=== PATIENT | male | born 2000 | race Hispanic/Latino ===

== ENCOUNTER 2019-07-20 19:26 | Emergency (ER) | payer OTHER, SELFPAY ==
--- NOTE | 2019-07-20 20:33 | RAD REPORT ---
EXAM DESCRIPTION: Erin Borrego (2 Views)07/20/2019 8:08 pm CLINICAL HISTORY: Cough COMPARISON: None FINDINGS: The lungs appear clear of acute infiltrate. The heart is normal size On the lateral view and upper thoracic vertebral body appears sclerotic IMPRESSION: On the lateral view an upper thoracic vertebral body appears sclerotic. This could be se condary to overlapping of normal structures giving the appearance of a sclerotic vertebra or be patho logic. It is recommended that the patient have lateral x-ray of the upper thoracic spine for further evaluation
--- NOTE | 2019-07-20 21:51 | ER ---
Nurse's Notes [facility] Name: King Pierce Age: 18 yrs Sex: Male : 2000 Arrival Date: 07/20/2019 Time: 19:27 Bed 28 Private MD: Chase Whitney W Diagnosis: Gas pain;Constipation;Essential (primary) hypertension Presentation: 07/20 19:51 Presenting complaint: Patient states: "i am having difficulty breathing, especially tr5 when i lay down i feel my heart beating fast and i feel dizzy.". Transition of care: patient was not received from another setting of care. Risk Assessment: Do you want to hurt yourself or someone else? Patient reports no desire to harm self or others. Initial Sepsis Screen: Does the patient meet any 2 criteria? No. Patient's initial sepsis screen is negative. Does the patient have a suspected source of infection? No. Patient's initial sepsis screen is negative. Care prior to arrival: None. 19:51 Method Of Arrival: Ambulatory tr5 19:51 Acuity: JANNY 4 tr5 Triage Assessment: 22:27 Respiratory: Onset: The symptoms/episode began/occurred. tr5 Historical: - Allergies: 19:54 No Known Allergies; tr5 - Home Meds: 19:54 None [Active]; tr5 - PMHx: 19:54 Asthma; tr5 - PSHx: 19:54 None; tr5 - Immunization history:: Adult Immunizations up to date. - Social history:: Smoking status: Patient uses tobacco products, denies chronic smoking, but will smoke occasionally. - Ebola Screening: : No symptoms or risks identified at this time. Screenin:54 Abuse screen: Denies threats or abuse. Nutritional screening: No deficits noted. tr5 Tuberculosis screening: No symptoms or risk factors identified. Fall Risk None identified. Assessment: 19:54 General: Appears in no apparent distress. Behavior is calm, cooperative, appropriate tr5 for age. Pain: Denies pain. Neuro: Level of Consciousness is awake, alert, obeys commands, Oriented to person, place, time, Mixer Operator Vacuum Pan Salt are equal bilaterally Moves all extremities. Gait is steady. Cardiovascular: Heart tones present Capillary refill < 3 seconds Rhythm is regular. Respiratory: Airway is patent Respiratory effort is even, unlabored, Respiratory pattern is regular, symmetrical, Breath sounds are clear bilaterally. Respiratory: Reports shortness of breath at rest. GI: No signs and/or symptoms were reported involving the gastrointestinal system. : No signs and/or symptoms were reported regarding the genitourinary system. EENT: No signs and/or symptoms were reported regarding the EENT system. Derm: No signs and/or symptoms reported regarding the dermatologic system. Musculoskeletal: No signs and/or symptoms reported regarding the musculoskeletal system. Vital Signs: 19:54 BP 135 / 101; Pulse 88; Resp 18; Temp 99.5(O); Pulse Ox 99% on R/A; Weight 77.11 kg; tr5 Height 5 ft. 6 in. (167.64 cm); 21:14 BP 137 / 59 RA Supine (auto/reg); Pulse 80; mb4 21:17 BP 131 / 67 RA Sitting (auto/reg); Pulse 78; mb4 21:17 BP 148 / 87 RA Standing (auto/reg); Pulse 80; mb4 19:54 Body Mass Index 27.44 (77.11 kg, 167.64 cm) tr5 ED Course: 19:27 Patient arrived in ED. es 19:27 Chase Whitney MD is Private Physician. es 19:30 Angi Sarabia FNP-C is [facility]. snw 19:30 Pedro Tate MD is Attending Physician. snw 19:50 Tray Farrell, PETE is Primary Nurse. tr5 19:53 Triage completed. tr5 19:54 Arm band placed on Patient placed. tr5 19:54 Bed in low position. Call light in reach. Side rails up X 1. tr5 20:03 EKG done, by ED staff, reviewed by Angi MARCUS. mb4 20:07 Chest Pa And Lat (2 Views) XRAY In Process Unspecified. EDMS 20:[address] via wheelchair. eh 21:14 CT Chest Wo Con In Process Unspecified. EDMS 22:26 No provider procedures requiring assistance completed. Patient did not have IV access tr5 during this emergency room visit. Administered Medications: 22:04 Drug: Simethicone 240 mg Route: PO; tr5 22:04 Drug: Magnesium Citrate Liquid 300 ml Route: PO; tr5 Outcome: 21:50 Discharge ordered by . snw 22:26 Discharged to home ambulatory. tr5 22:26 Condition: stable 22:26 Discharge instructions given to patient, Instructed on discharge instructions, follow up and referral plans. medication usage, Demonstrated understanding of instructions, follow-up care, medications, Prescriptions given X 1. 22:27 Patient left the ED. tr5 Signatures: Dispatcher [employer] EDAngi Delgado, TENNIS CAMP INSTRUCTOR-C TENNIS CAMP INSTRUCTOR-Csnw Laquita Anand Ervin eh Baxter, Mackenzie mb4 Tray Farrell, RN RN tr5
--- NOTE | 2019-07-20 21:51 | EDPHYS ---
Physician Documentation [facility] Name: King Pierce Age: 18 yrs Sex: Male : 2000 Arrival Date: 07/20/2019 Time: 19:27 Bed 28 Private MD: Chase Whitney W ED Physician Pedro Tate HPI: 07/20 20:12 This 18 yrs old Male presents to ER via Ambulatory with complaints of snw Dizziness, Breathing Difficulty. 20:12 The patient presents with lightheadedness. Onset: The symptoms/episode began/occurred snw post lying down and feeling short of breath. Context: just prior to the episode the patient experienced lightheadedness, palpitations. Modifying factors: The symptoms are alleviated by nothing, the symptoms are aggravated by lying down. Associated signs and symptoms: The patient has no apparent associated signs or symptoms. Severity of symptoms: At their worst the symptoms were mild moderate x 1 month. Patient's baseline: Neuro: alert and fully oriented, Motor: no deficits, Ambulation: walks without assistance, Speech: normal. It is unknown whether or not the patient has had similar symptoms in the past. It is unknown whether or not the patient has recently seen a physician. +smoker. Historical: - Allergies: 19:54 No Known Allergies; tr5 - Home Meds: 19:54 None [Active]; tr5 - PMHx: 19:54 Asthma; tr5 - PSHx: 19:54 None; tr5 - Immunization history:: Adult Immunizations up to date. - Social history:: Smoking status: Patient uses tobacco products, denies chronic smoking, but will smoke occasionally. - Ebola Screening: : No symptoms or risks identified at this time. ROS: 20:12 Constitutional: Negative for fever, chills, and weight loss, Eyes: Negative for injury, snw pain, redness, and discharge, ENT: Negative for injury, pain, and discharge, Neck: Negative for injury, pain, and swelling, Respiratory: Positive for shortness of breath, denies cough, wheezing, and pleuritic chest pain, Abdomen/GI: Negative for abdominal pain, nausea, vomiting, diarrhea, and constipation, Back: Negative for injury and pain, : Negative for injury, bleeding, discharge, and swelling, MS/Extremity: Negative for injury and deformity, Skin: Negative for injury, rash, and discoloration, Neuro: Negative for headache, weakness, numbness, tingling, and seizure. 20:12 Cardiovascular: Positive for palpitations. Exam: 20:12 Constitutional: This is a well developed, well nourished patient who is awake, alert, snw and in no acute distress. Head/Face: Normocephalic, atraumatic. Eyes: Pupils equal round and reactive to light, extra-ocular motions intact. Lids and lashes normal. Conjunctiva and sclera are non-icteric and not injected. Cornea within normal limits. Periorbital areas with no swelling, redness, or edema. ENT: Nares patent. No nasal discharge, no septal abnormalities noted. Tympanic membranes are normal and external auditory canals are clear. Oropharynx with no redness, swelling, or masses, exudates, or evidence of obstruction, uvula midline. Mucous membranes moist. Neck: Trachea midline, no thyromegaly or masses palpated, and no cervical lymphadenopathy. Supple, full range of motion without nuchal rigidity, or vertebral point tenderness. No Meningismus. Chest/axilla: Normal chest wall appearance and motion. Nontender with no deformity. No lesions are appreciated. Cardiovascular: Regular rate and rhythm with a normal S1 and S2. No gallops, murmurs, or rubs. Normal PMI, no JVD. No pulse deficits. Respiratory: Lungs have equal breath sounds bilaterally, clear to auscultation and percussion. No rales, rhonchi or wheezes noted. No increased work of breathing, no retractions or nasal flaring. Abdomen/GI: Soft, non-tender, with normal bowel sounds. No distension or tympany. No guarding or rebound. No evidence of tenderness throughout. Back: No spinal tenderness. No costovertebral tenderness. Full range of motion. Skin: Warm, dry with normal turgor. Normal color with no rashes, no lesions, and no evidence of cellulitis. MS/ Extremity: Pulses equal, no cyanosis. Neurovascular intact. Full, normal range of motion. Neuro: Awake and alert, GCS 15, oriented to person, place, time, and situation. Cranial nerves II-XII grossly intact. Motor strength 5/5 in all extremities. Sensory grossly intact. Cerebellar exam normal. Normal gait. Psych: Awake, alert, with orientation to person, place and time. Behavior, mood, and affect are within normal limits. Vital Signs: 19:54 BP 135 / 101; Pulse 88; Resp 18; Temp 99.5(O); Pulse Ox 99% on R/A; Weight 77.11 kg; tr5 Height 5 ft. 6 in. (167.64 cm); 21:14 BP 137 / 59 RA Supine (auto/reg); Pulse 80; mb4 21:17 BP 131 / 67 RA Sitting (auto/reg); Pulse 78; mb4 21:17 BP 148 / 87 RA Standing (auto/reg); Pulse 80; mb4 19:54 Body Mass Index 27.44 (77.11 kg, 167.64 cm) tr5 MDM: 19:43 Patient medically screened. snw 21:44 Data reviewed: vital signs, nurses notes. Data interpreted: Pulse oximetry: on room air snw is 99 %. Interpretation: normal. Counseling: I had a detailed discussion with the patient and/or guardian regarding: the historical points, exam findings, and any diagnostic results supporting the discharge/admit diagnosis, radiology results, to return to the emergency department if symptoms worsen or persist or if there are any questions or concerns that arise at home. 07/20 19:51 Order name: Chest Pa And Lat (2 Views) XRAY; Complete Time: 20:42 snw 07/20 19:51 Order name: EKG; Complete Time: 19:52 snw 07/20 20:47 Order name: CT Chest Wo Con snw 07/20 19:51 Order name: EKG - Nurse/Tech; Complete Time: 21:07 snw 07/20 20:18 Order name: Orthostatics; Complete Time: 21:22 snw Administered Medications: 22:04 Drug: Simethicone 240 mg Route: PO; tr5 22:04 Drug: Magnesium Citrate Liquid 300 ml Route: PO; tr5 Disposition: 07/21 06:00 Co-signature as Attending Physician, Pedro Tate MD I agree with the assessment and tw4 plan of care. Disposition: 07/20/19 21:50 Discharged to Home. Impression: Gas pain, Constipation, Essential (primary) hypertension. - Condition is Stable. - Discharge Instructions: Hypertension, Shortness of Breath, Steps to Quit Smoking, Smoking Hazards, Intestinal Gas and Gas Pains, Pediatric, How to Take Your Blood Pressure, [id number], DASH Eating Plan, Rehydration, Adult, Managing Your Hypertension, Form - Blood Pressure Record Sheet. - Prescriptions for Miralax 17 gram/dose Oral - take 1 packet by ORAL route once daily dilute powder in 8 ounces of water or juice; 1 box. - Work release form, Medication Reconciliation Form, Thank You Letter, Antibiotic Education, Prescription Opioid Use form. - Follow up: Private Physician; When: 2 - 3 days; Reason: Recheck today's complaints, Continuance of care, Re-evaluation by your physician. Follow up: Emergency Department; When: As needed; Reason: Trouble breathing, Worsening of condition. Signatures: Dispatcher [employer] [facility] Angi Sarabia, RONY-C PHARMACIST AIDE-Csnw Pedro Tate MD MD tw4 Tray Farrell RN RN tr5 Corrections: (The following items were deleted from the chart) 07/20 20:52 20:45 Thoracic Spine WO Cont+CT.RAD.BRZ ordered. [facility] 22: 21:50 07/20/2019 21:50 Discharged to Home. Impression: Gas pain; Constipation; tr5 Essential (primary) hypertension. Condition is Stable. Forms are Medication Reconciliation Form, Thank You Letter, Antibiotic Education, Prescription Opioid Use. Follow up: Private Physician; When: 2 - 3 days; Reason: Recheck today's complaints, Continuance of care, Re-evaluation by your physician. Follow up: Emergency Department; When: As needed; Reason: Trouble breathing, Worsening of condition. snw
[2019-07-20] MEDS ORDERED: MAGNESIUM CITRATE 300 ML BOT ONE (22:00)
[2019-07-20] MEDS ORDERED: SIMETHICONE 80 MG TAB ONE (22:00)
[2019-07-20 22:32] VITALS: TEMP 99.5; O2SAT 99
[2019-07-20 22:34] VITALS: BP 148/87
--- NOTE | 2019-07-22 11:46 | EKG ---
Test Date: 2019-07-20 Test Time: 19:59:08 Yarn Worker: LINNEA MEASUREMENT RESULTS: Intervals: Rate: 82 ME: 158 QRSD: 104 QT: 336 QTc: 392 [place]: P: 57 ME: 158 QRS: 10 T: 23 INTERPRETIVE STATEMENTS: Normal sinus rhythm Incomplete right bundle branch block Borderline ECG No previous ECG available for comparison Electronically Signed On 07-22-19 11:42:26 SHOP SERVICE TECHNICIAN by Vinicius Russell
--- NOTE | 2019-07-23 09:34 | RAD REPORT ---
EXAM DESCRIPTION: CT - Thorax Wo Con - 07/21/2019 2:31 am CLINICAL HISTORY: Shortness of breath. TECHNIQUE: 5 mm axial images of the thorax were obtained without intravenous contrast. Coronal and s agittal reformatted images were obtained. DOSE OPTIMIZATION: This facility uses dose optimization techniques as appropriate to perform exams, including at least one of the following techniques: 1. Automated exposure control. 2. Adjustment of the mA and/or kV according to patient size (this includes techniques or standardized protocols for targeted exams where dose is matched to the indication/reason for exam, i.e. extremiti es or head). 3. Use of iterative reconstructive technique. INTRAVENOUS CONTRAST: None. COMPARISON: None. FINDINGS: Lung Ke[place]: Normal. Mediastinal Structures: Normal. Pleural Space: Normal. Axillae: Normal. Upper Abdomen: There is increased stool in the transverse colon Bony Structures: No suspicious lesions. IMPRESSION: 1. Increased stool in the transverse colon. 2. Otherwise, normal study. Electronically signed by: George Slater MD 07/20/2019 9:41 PM DIRECTOR CLINICAL DATA Due to temporary technical issues with the PACS/Fluency reporting system, reports are being signed by the in house radiologist as a courtesy to ensure prompt reporting. The interpreting radiologist is f ully responsible for the content of the report.
== END 2019-07-20 22:27 | disposition home or self-care (01) ==
LOC: ER 19:26
DX: K59.00 Constipation, unspecified (principal); I10 Essential (primary) hypertension; Z72.0 Tobacco use
CPT/HCPCS: 71046; 71250; 93005; 99284

== ENCOUNTER 2019-12-15 01:41 | Emergency (ER) | payer SELFPAY ==
[2019-12-15] MEDS ORDERED: NA CHLORIDE 0.9% 0 ML ONE (02:05)
[2019-12-15] MEDS ORDERED: MUPIROCIN 2% OINT 22GM TUBE TOP ONE ×2 (02:05→02:10)
[2019-12-15] MEDS ORDERED: ONDANSETRON 4 MG/2 ML VIAL ONE ×2 (02:05→02:10)
[2019-12-15] MEDS ORDERED: NA CHLORIDE 0.9% 1,000 ML ONE (02:10)
[2019-12-15 02:19] LABS: Absolute Lymphocytes (CBC) 1.4 K/uL (0.7-4.9); Basophils % 0.2 % (0-1.3); Hematocrit 49.5 % (39.6-49.0); Lymphocytes % 15.4 % (15.3-44.8); MPV 8.8 fL (7.6-11.3); RBC Red Blood Cell Count 5.65 M/uL (4.33-5.43)
[2019-12-15 02:35] LABS: ALT/SGPT 29 U/L (12-78); AST/SGOT 17 U/L (15-37); Albumin 4.8 g/dL (3.4-5.0); Alkaline Phosphatase 44 U/L (45-117); BUN Blood Urea Nitrogen 9 mg/dL (7-18); Bicarbonate 29 mmol/L (21-32); Bilirubin Direct < 0.1 mg/dL (0-0.2); Bilirubin Total 0.3 mg/dL (0.2-1.0); Glucose Level 107 mg/dL (74-106); Protein, Total 8.2 g/dL (6.4-8.2); Sodium Level 142 mmol/L (136-145)
[2019-12-15 02:45] LABS: Barbiturates NEGATIVE (NEGATIVE); Benzodiazepines NEGATIVE (NEGATIVE); Cocaine NEGATIVE (NEGATIVE); METHAMPHETAM NEGATIVE (NEGATIVE); Methadone NEGATIVE (NEGATIVE); Opiates NEGATIVE (NEGATIVE); Phencyclidine NEGATIVE (NEGATIVE); THC Cannibis NEGATIVE (NEGATIVE)
[2019-12-15 03:06] LABS: Urine Blood NEGATIVE (NEG); Urine Glucose NEGATIVE (NEG); Urine Protein NEGATIVE (NEG)
--- NOTE | 2019-12-15 03:19 | EDPHYS ---
Physician Documentation [facility] Name: King Pierce Age: 19 yrs Sex: Male : 2000 Arrival Date: 12/15/2019 Time: 01:42 Bed 6 Private MD: ED Physician Salty Meadows HPI: 12/14 01:55 This 19 yrs old Male presents to ER via Unassigned with complaints of Head hossein Injury-Adult. 01:55 The patient or guardian reports pain. The complaints affect the top of head, forehead, hossein left frontal area, left side of the back of head, left occipital area, left base of the skull, right frontal area, right side of the back of head, right occipital area and right base of the skull. Context [place]: [place]. Onset: The symptoms/episode began/occurred 0.5 hour(s) ago. Associated signs and symptoms: Pertinent positives: loss of conciousness, patient admits to or smells of alcohol consumption, headache, vomiting. Severity of symptoms: At their worst the symptoms were mild, moderate, in the emergency department the symptoms are unchanged. The patient has not experienced similar symptoms in the past. Historical: - Allergies: 01:59 No Known Allergies; rv - Home Meds: 01:59 None [Active]; rv - PMHx: 01:59 Asthma; rv - PSHx: 01:59 None; rv - Immunization history:: Adult Immunizations up to date, Last tetanus immunization: up to date. - Family history:: not pertinent. - Social history:: Smoking status: Patient denies any tobacco usage or history of. ROS: 01:55 Constitutional: Negative for fever, chills, and weight loss, Eyes: Negative for injury, hossein pain, redness, and discharge, ENT: Negative for injury, pain, and discharge, Neck: Negative for injury, pain, and swelling, Cardiovascular: Negative for chest pain, palpitations, and edema, Respiratory: Negative for shortness of breath, cough, wheezing, and pleuritic chest pain, Abdomen/GI: Negative for abdominal pain, nausea, vomiting, diarrhea, and constipation, Back: Negative for injury and pain, : Negative for injury, bleeding, discharge, and swelling, Skin: Negative for injury, rash, and discoloration, Psych: Negative for depression, anxiety, suicide ideation, homicidal ideation, and hallucinations, Allergy/Immunology: Negative for hives, rash, and allergies, Endocrine: Negative for neck swelling, polydipsia, polyuria, polyphagia, and marked weight changes. 01:55 MS/extremity: Positive for injury or acute deformity, abrasion, of the left knee. Exam: 01:55 Constitutional: This is a well developed, well nourished patient who is awake, alert, hossein and in no acute distress. Head/Face: Normocephalic, atraumatic. Eyes: Pupils equal round and reactive to light, extra-ocular motions intact. Lids and lashes normal. Conjunctiva and sclera are non-icteric and not injected. Cornea within normal limits. Periorbital areas with no swelling, redness, or edema. ENT: Nares patent. No nasal discharge, no septal abnormalities noted. Tympanic membranes are normal and external auditory canals are clear. Oropharynx with no redness, swelling, or masses, exudates, or evidence of obstruction, uvula midline. Mucous membranes moist. Neck: Trachea midline, no thyromegaly or masses palpated, and no cervical lymphadenopathy. Supple, full range of motion without nuchal rigidity, or vertebral point tenderness. No Meningismus. Chest/axilla: Normal chest wall appearance and motion. Nontender with no deformity. No lesions are appreciated. Cardiovascular: Regular rate and rhythm with a normal S1 and S2. No gallops, murmurs, or rubs. Normal PMI, no JVD. No pulse deficits. Respiratory: Lungs have equal breath sounds bilaterally, clear to auscultation and percussion. No rales, rhonchi or wheezes noted. No increased work of breathing, no retractions or nasal flaring. Abdomen/GI: Soft, non-tender, with normal bowel sounds. No distension or tympany. No guarding or rebound. No evidence of tenderness throughout. Back: No spinal tenderness. No costovertebral tenderness. Full range of motion. Male : Normal genitalia with no discharge or lesions. Skin: Warm, dry with normal turgor. Normal color with no rashes, no lesions, and no evidence of cellulitis. Psych: Awake, alert, with orientation to person, place and time. Behavior, mood, and affect are within normal limits. 01:55 Musculoskeletal/extremity: ROM: intact in all extremities, full active range of motion, full passive range of motion, Circulation is intact in all extremities. Sensation intact. Compartment Syndrome exam of affected extremity: is normal. 01:55 Skin: Appearance: normal except for affected area, Color: normal in color, abscess, not appreciated, cellulitis, is not appreciated, injury, abrasion(s), moderate sized abrasion noted, of the left knee. 02:01 Chest/axilla: Exam negative for acute changes. hossein 02:01 Respiratory: Exam negative for acute changes, the patient does not display signs of respiratory distress, Respirations: normal, no acute changes, labored breathing, is not present, Breath sounds: are clear throughout, no bronchial sounds, no decreased breath sounds, no rales, rhonchi, no stridor, no wheezing, no acute changes. Vital Signs: 01:53 BP 155 / 97; Pulse 116; Resp 19; Temp 97.4; Pulse Ox 97% ; Weight 79.38 kg; Height 5 rv ft. 6 in. (167.64 cm); Pain 0/10; 01:53 Body Mass Index 28.25 (79.38 kg, 167.64 cm) rv Kaylene Coma Score: 01:53 Eye Response: spontaneous(4). Verbal Response: confused(4). Motor Response: obeys rv commands(6). Total: 14. 01:55 Eye Response: spontaneous(4). Verbal Response: oriented(5). Motor Response: obeys hossein commands(6). Total: 15. 01:59 Eye Response: spontaneous(4). Verbal Response: oriented(5). Motor Response: obeys hossein commands(6). Total: 15. MDM: 01:45 Patient medically screened. hossein 01:59 Data reviewed: vital signs, nurses notes, lab test result(s), EKG, radiologic studies, [facility] CT scan. 01:59 Differential diagnosis: Contusion of Hematoma on Intracranial bleed- Concussion with hossein LOC. cerebral contusion. Data interpreted: monitor car operator: rate is 116 beats/min, Pulse oximetry: on room air is 98 %. Test interpretation: by ED physician or midlevel provider: ECG, ct head and c spine. Counseling: I had a detailed discussion with the patient and/or guardian regarding: the historical points, exam findings, and any diagnostic results supporting the discharge/admit diagnosis, lab results, radiology results, the need for outpatient follow up. 02:39 Medication response: Zofran markedly relieved the patient's nausea. Awaiting: CT scan [facility] results, waiting. ED course: mom present and aware of work up in progress. 12/14 01:55 Order name: Acetaminophen; Complete Time: 02:38 [facility] 12/14 01:55 Order name: Basic Metabolic Panel; Complete Time: 02:38 [facility] 12/14 01:55 Order name: CBC with Diff; Complete Time: 02:28 [facility] 12/14 01:55 Order name: ETOH Level; Complete Time: 02:38 [facility] 12/14 01:55 Order name: Hepatic Function; Complete Time: 02:38 [facility] 12/14 01:55 Order name: PT-INR; Complete Time: 02: [facility] 12/14 01:55 Order name: Ptt, Activated; Complete Time: 02:28 [facility] 12/14 01:55 Order name: Salicylate; Complete Time: 03:07 [facility] 12/14 01:55 Order name: Urine Drug Screen; Complete Time: 03:07 [facility] 12/14 01:55 Order name: CT Head C Spine [facility] 12/14 02:37 Order name: Urine Dipstick--Ancillary (enter results) ar5 12/14 01:55 Order name: EKG; Complete Time: 01:56 [facility] 12/14 01:55 Order name: EKG - Nurse/Tech; Complete Time: 02:31 [facility] 12/14 01:55 Order name: IV Saline Lock; Complete Time: 02:18 [facility] 12/14 01:55 Order name: Labs collected and sent; Complete Time: 02: [facility] 12/14 01:55 Order name: Urine Dipstick-Ancillary (obtain specimen); Complete Time: 02: [facility] 12/14 01:55 Order name: Wound Care: left knee; Complete Time: 02:31 [facility] Administered Medications: 02:05 Drug: NS 0.9% 1000 ml Route: IV; Rate: 1 bolus; Site: right antecubital; rr5 02:06 Drug: Zofran (Ondansetron) 4 mg Route: IVP; Site: right antecubital; rr5 02:18 Drug: Bactroban Ointment 2 % 1 application {Note: left knee.} Route: Topical; Site: rr5 affected area; Disposition: 12/15/19 03:18 Patient has left against medical advice. - Patients states they are going to Home. - Condition is Undetermined. - Discharge Instructions: Alcohol Intoxication, Head Injury, Adult, Alcohol Intoxication, [id number], Head Injury, Adult, [id number]. - Prescriptions for Zofran 4 mg Oral Tablet - take 1 tablet by ORAL route every 12 hours As needed; 14 tablet. Signatures: Dispatcher [employer] Salty Radford MD MD cha Vicente, Ronaldo, RN RN Alessandro Lemos RN RN rr5
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
[2019-12-15 03:27] VITALS: BP 155/97; TEMP 97.4; O2SAT 97
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
== END 2019-12-15 03:18 | disposition left against medical advice (07) ==
LOC: ER 01:41
DX: S09.90XA Unspecified injury of head, initial encounter (principal); S80.212A Abrasion, left knee, initial encounter; W19.XXXA Unspecified fall, initial encounter; Y93.9 Activity, unspecified; Y92.832 Beach as the place of occurrence of the external cause
CPT/HCPCS: 36415; 70450; 72125; 80048; 80076; 80307; 80320; 80329; 81003; 85025; 85610; 85730; 96374; 99284; J2405; J7030

== ENCOUNTER → 2023-09-14 | Emergency (ER) | payer SELFPAY ==
[~2023-09-14] MED LIST: FAMOTIDINE 20 MG TAB ONE; predniSONE 20 MG TAB ONE
--- OUTSIDE RECORDS SUMMARY | 2023-09-14 22:50 | XMS REPORT | Continuity of Care Document ---
Author Name Unknown Address [address] [facility] [place], [place] [id number] [place] [address] [employer]connect Address [address] [facility] [place] [address] Care Team Providers Care Afloat Cryptologic Manager Name Role Phone AMI GUEVARA Primary Care Physician Unavailab le [email or web address] Attending Clinician Unavailable DR AMI GUEVARA Attending Clinician Unavailable [phone] Attending Clinician Unavailable [id number] Attending Clinician Unavailable JOEY Attending Clinician Unavailable GC_[email or web address]_A Admitting Clinician Unavailable DR AMI GUEVARA Admitting Clinician Unavailable JOEY Admitting Clinician Unavailable Payers Payer Name Policy Type Policy Number Effective Date Expirati on Date Source Allergies, Adverse Reactions, Alerts Allergy Name Allergy Type Status Severity Reaction(s) Onset Date Inactive Date Treating Clinician Comments Source No Known Drug Allergie s MA Active UNKNOWN [facility] Encounters Start Date/Time End Date/Time Encounter Type Admission Type Attending [facility] Care Facility Care Department Encounter ID Source 2023-06-02 00:00:00 2023-06-02 00:00:00 Outpatient GC_[email or web address] _A PRIV PRIV [id number] [facility] 2023-06-01 00:00:00 2023-06-01 00:00:00 Outpatient GC_[email or web address] _A PRIV PRIV [id number] [facility] 2023-04-20 17:24:00 2023-04-20 18:50:00 Emergency E AMI GUEVARA [id number] [facility] EMERGENCY ROOM [id number] [facility] 2022-02-09 04:49:00 2022-02-09 04:49:00 Outpatient MEME ROCA [facility] [id number] 07 [facility]
--- NOTE | 2023-09-14 23:01 | EDPHYS ---
Physician Documentation [facility] Name: King Pierce Age: 23 yrs Sex: Male : 2000 Arrival Date: 09/14/2023 Time: 22:47 Bed DX3 Private MD: ED Physician Salty Meadows HPI: 09/14 23:04 This 23 yrs old Male presents to ER via Unassigned with complaints of Rash. kb 23:04 Patient is a 23-year-old male who reports rash to mid back that is started to wrap kb around to his ribs. Reports that rash started about 3 weeks ago and is not getting any better. Reports itching. Denies fever chills.. Historical: - Allergies: 23:07 No Known Allergies; as9 - PMHx: 23:07 None; as9 - PSHx: 23:07 None; as9 - Immunization history:: Client reports having NOT received the Covid vaccine. Flu vaccine is not up to date. - Social history:: Smoking status: Patient reports the use of cigarette tobacco products, vape, Patient uses alcohol, occasionally. Patient/guardian denies using. ROS: 23:01 Constitutional: Negative for fever, chills, and weight loss, kb 23:01 Skin: Positive for rash, of the left subscapular area, right subscapular area and mid back area, 23:01 All other systems are negative, Exam: 23:01 Constitutional: This is a well developed, well nourished patient who is awake, alert, kb and in no acute distress. Head/Face: Normocephalic, atraumatic. ENT: Moist Mucous membranes Cardiovascular: Regular rate Respiratory: Respirations even and unlabored. No increased work of breathing. Talking in full sentences MS/ Extremity: Pulses equal, no cyanosis. Neurovascular intact. Full, normal range of motion. Neuro: Awake and alert, GCS 15, oriented to person, place, time, and situation. Moves all extremities. Normal gait. 23:01 Skin: rash a moderate rash is noted, consistent with urticaria, on the mid back area and right subscapular area and left subscapular area, Vital Signs: 23:02 BP 153 / 97; Pulse 87; Resp 20; Temp 98.1; Pulse Ox 99% on R/A; Weight 81.65 kg; Height as9 5 ft. 7 in. ; 23:02 Body Mass Index 28.19 (81.65 kg, 170.18 cm) as9 MDM: 22:52 Patient medically screened. kb 23:02 Differential diagnosis: impetigo, allergic reaction, parasite infection. Data reviewed: kb vital signs, nurses notes. Counseling: I had a detailed discussion with the patient and/or guardian regarding the historical points, exam findings, and any diagnostic results supporting the discharge/admit diagnosis, the need for outpatient follow up, a family practitioner, to return to the emergency department if symptoms worsen or persist or if there are any questions or concerns that arise at home. Administered Medications: 23:20 Drug: predniSONE PO 40 mg PO once Route: PO; cm10 23:20 Follow up: Response: Medication administered at discharge. cm10 23:20 Drug: Famotidine PO 20 mg PO once Route: PO; cm10 23:20 Follow up: Response: Medication administered at discharge. cm10 Disposition Summary: 09/14/23 23:00 Discharge Ordered Notes: Location: Home kb Condition: Stable kb Diagnosis - Rash and other nonspecific skin eruption kb Followup: kb - With: Emergency Department - When: As needed - Reason: Worsening of condition Followup: kb - With: Private Physician - When: 2 - 3 days - Reason: Recheck today's complaints, Continuance of care, Re-evaluation by your physician Discharge Instructions: - Discharge Summary Sheet kb - Rash, Adult, [id number] kb Forms: - Medication Reconciliation Form kb - Thank You Letter kb - Antibiotic Education kb - Prescription Opioid Use kb - Patient Portal Instructions kb - Leadership Thank You Letter kb Prescriptions: - Pepcid 20 mg Oral Tablet - take 1 tablet ORAL route every 12 hours for 5 days; 10 tablet; Refills: 0, kb Product Selection Permitted - Prednisone 20 mg Oral Tablet - take 1 tablet ORAL route once daily for 5 days; 5 tablet; Refills: 0, Product kb Selection Permitted Signatures: Rosy Betancourt FNP-C FNP-Ckb Martinez, Clarissa RN RN cm10 Vinny Llamas RN RN as9 Corrections: (The following items were deleted from the chart) 23:13 23:07 Social history: Smoking status: Patient reports the use of cigarette tobacco as9 products, vape, Patient/guardian denies using alcohol, street drugs, but used to use street drugs, as9 23:15 23:07 Social history: Smoking status: Patient reports the use of cigarette tobacco as9 products, vape, Patient uses alcohol, occasionally. Patient/guardian denies using alcohol, street drugs, but used to use street drugs, as9 23:16 23:07 Social history: Smoking status: Patient reports the use of cigarette tobacco as9 products, vape, Patient uses alcohol, occasionally. Patient/guardian denies using alcohol, street drugs, but used to use street drugs, as9
--- NOTE | 2023-09-14 23:23 | ER ---
Nurse's Notes [facility] Name: King Pierce Age: 23 yrs Sex: Male : 2000 Arrival Date: 09/14/2023 Time: 22:47 Bed DX3 Private MD: Diagnosis: Rash and other nonspecific skin eruption Presentation: 09/14 23:02 Chief complaint: Patient states: rashes on the back started 5 months ago, coughing on as9 and off and with sweating that started yesterday. fungus on left and right toenails . Coronavirus screen: Vaccine status: Patient reports being unvaccinated. At this time, the client does not indicate any symptoms associated with coronavirus-19. Ebola Screen: No symptoms or risks identified at this time. Initial Sepsis Screen: Does the patient meet any 2 criteria? No. Patient's initial sepsis screen is negative. Does the patient have a suspected source of infection? No. Patient's initial sepsis screen is negative. Risk Assessment: Do you want to hurt yourself or someone else? Patient reports no desire to harm self or others. Onset of symptoms was April 24, 2023. 23:02 Method Of Arrival: Ambulatory as9 23:02 Acuity: JANNY 4 as9 Triage Assessment: 23:07 General: Appears in no apparent distress. comfortable, Behavior is calm, cooperative, as9 appropriate for age. Pain: Denies pain. EENT: No signs and/or symptoms were reported regarding the EENT system. Neuro: Level of Consciousness is awake, alert, obeys commands, Oriented to person, place, time, situation, Appropriate for age. Cardiovascular: Capillary refill < 3 seconds Patient's skin is warm and dry. Respiratory: Airway is patent Respiratory effort is even, unlabored, Respiratory pattern is regular, symmetrical. GI: No signs and/or symptoms were reported involving the gastrointestinal system. : No signs and/or symptoms were reported regarding the genitourinary system. Derm: Rash noted that is itchy. Musculoskeletal: No signs and/or symptoms reported regarding the musculoskeletal system. Historical: - Allergies: 23:07 No Known Allergies; as9 - PMHx: 23:07 None; as9 - PSHx: 23:07 None; as9 - Immunization history:: Client reports having NOT received the Covid vaccine. Flu vaccine is not up to date. - Social history:: Smoking status: Patient reports the use of cigarette tobacco products, vape, Patient uses alcohol, occasionally. Patient/guardian denies using. Screenin:21 [facility] ED Fall Risk Assessment (Adult) History of falling in the last 3 months, cm10 including since admission No falls in past 3 months (0 pts) Confusion or Disorientation No (0 pts) Intoxicated or Sedated No (0 pts) Impaired Gait No (0 pts) Mobility Assist Device Used No (0 pt) Altered Elimination No (0 pt) Score/Fall Risk Level 0 - 2 = Low Risk Oriented to surroundings, Maintained a safe environment, Hourly rounding (assess needs \T\ fall precautionary measures) done. Abuse screen: Denies threats or abuse. Denies injuries from another. Nutritional screening: No deficits noted. Tuberculosis screening: No symptoms or risk factors identified. Assessment: 23:21 General: Appears in no apparent distress. comfortable, Behavior is calm, cooperative. cm10 Pain: Denies pain. Neuro: No deficits noted. Level of Consciousness is awake, alert, obeys commands, Oriented to person, place, time, situation. Respiratory: No deficits noted. Airway is patent Respiratory effort is even, unlabored, Respiratory pattern is regular, symmetrical. Derm: Reports Rash to back. Vital Signs: 23:02 BP 153 / 97; Pulse 87; Resp 20; Temp 98.1; Pulse Ox 99% on R/A; Weight 81.65 kg; Height as9 5 ft. 7 in. ; 23:02 Body Mass Index 28.19 (81.65 kg, 170.18 cm) as9 ED Course: 22:51 Patient arrived in ED. mr 22:52 Rosy Betancourt FNP-C [facility]. kb 22:52 Salty Meadows MD is Attending Physician. kb 23:07 Triage completed. as9 23:21 Arm band placed on. cm10 23:21 Patient has correct armband on for positive identification. Provided Education on: cm10 Follow-up instructions. . 23:22 No provider procedures requiring assistance completed. Patient did not have IV access cm10 during this emergency room visit. Administered Medications: 23:20 Drug: predniSONE PO 40 mg PO once Route: PO; cm10 23:20 Follow up: Response: Medication administered at discharge. cm10 23:20 Drug: Famotidine PO 20 mg PO once Route: PO; cm10 23:20 Follow up: Response: Medication administered at discharge. cm10 Medication: 23:21 VIS not applicable for this client. cm10 Outcome: 23:00 Discharge ordered by . melba 23:22 Discharged to home ambulatory, with family, cm10 23:22 Condition: good 23:22 Discharge instructions given to patient, Instructed on discharge instructions, follow up and referral plans. medication usage, Demonstrated understanding of instructions, follow-up care, medications, Prescriptions given X 2, 23:22 Patient left the ED. cm10 Signatures: Rosy Betancourt, STORE SALES LEADER-C STORE SALES LEADER-Ckb Shannan Stout, Reg Reg mr Lenka Flynn, RN RN cm10 Vinny Llamas RN RN as9 Corrections: (The following items were deleted from the chart) 23:13 23:07 Social history: Smoking status: Patient reports the use of cigarette tobacco as9 products, vape, Patient/guardian denies using alcohol, street drugs, but used to use street drugs, as9 23:14 23:02 Acuity: JANNY 3 as9 as9 23:15 23:07 Social history: Smoking status: Patient reports the use of cigarette tobacco as9 products, vape, Patient uses alcohol, occasionally. Patient/guardian denies using alcohol, street drugs, but used to use street drugs, as9 23:16 23:07 Social history: Smoking status: Patient reports the use of cigarette tobacco as9 products, vape, Patient uses alcohol, occasionally. Patient/guardian denies using alcohol, street drugs, but used to use street drugs, as9
[2023-09-14 23:50] VITALS: BP 153/97; TEMP 98.1; O2SAT 99
== END ==
LOC: ER 22:47
DX: R21 Rash and other nonspecific skin eruption (principal); Z72.0 Tobacco use
CPT/HCPCS: J7512

== ENCOUNTER 2024-11-18 13:33 | Emergency (ER) | payer SELFPAY ==
--- OUTSIDE RECORDS SUMMARY | 2024-11-18 13:37 | XMS REPORT | Continuity of Care Document ---
Author Name Unknown Address [address] [facility] [address] [place] [address] [facility] Address [address] [facility] [address] [place] [address] Care Team Providers Care Glue Reel Operator Name Role Phone AMI GUEVARA Primary Care Physician Unavailab le GC_[email or web address]_A Attending Clinician Unavailable DR AMI GUEVARA Attending Clinician Unavailable [phone] Attending Clinician Unavailable [id number] Attending Clinician Unavailable JOEY Attending Clinician Unavailable GC_CPC_Mora_A Admitting Clinician Unavailable DR AMI GUEVARA Admitting Clinician Unavailable JOEY Admitting Clinician Unavailable Payers Payer Name Policy Type Policy Number Effective Date Expirati on Date Source Allergies, Adverse Reactions, Alerts Allergy Name Allergy Type Status Severity Reaction(s) Onset Date Inactive Date Treating Clinician Comments Source No Known Drug Allergie s MA Active UNKNOWN [facility] Encounters Start Date/Time End Date/Time Encounter Type Admission Type Attending [facility] Care Facility Care Department Encounter ID Source 2023-06-02 00:00:00 2023-06-02 00:00:00 Outpatient [facility]Mora _A PRIV PRIV [id number] [facility] 2023-06-01 00:00:00 2023-06-01 00:00:00 Outpatient GC_CPC_Mora _A PRIV PRIV [id number] [facility] 2023-04-20 17:24:00 2023-04-20 18:50:00 Emergency E AMI GUEVARA [id number] [facility] EMERGENCY ROOM [id number] [facility] 2022-02-09 04:49:00 2022-02-09 04:49:00 Outpatient MEME ROCA [facility] [id number] 07 [facility]
[2024-11-18 14:09] LABS: Absolute Lymphocytes (CBC) 1.4 K/uL (0.7-4.9); Absolute Monocytes 0.8 K/uL (0.1-1.3); Absolute Neutrophil 7.8 K/uL (1.8-8.0); Basophils % 0.3 % (0-1.3); Eosinophils % 0.5 % (0-4.4); Hematocrit 46.6 % (39.6-49.0); Hemoglobin 16.6 g/dL (13.6-17.9); MCH 31.8 pg (27.0-35.0); MCHC 35.7 g/dL (32.0-36.0); MCV 88.9 fL (80-100); MPV 8.6 fL (7.6-11.3); Monocytes % 8.3 % (3.3-12.3); Neutrophils % 76.9 % (41.7-73.7); Nucleated Red Blood Cells % 0.1 % (0-0); Platelets 258 thou/uL (152-406); RBC Red Blood Cell Count 5.24 M/uL (4.33-5.43); Red Cell Distribution Width 12.9 % (12.1-15.2)
[2024-11-18] MEDS ORDERED: NA CHLORIDE 0.9% 1,000 ML ONE (14:16)
[2024-11-18] MEDS ORDERED: THIAMINE 200 MG/2 ML INJ ONE (14:16)
--- NOTE | 2024-11-18 14:17 | RAD REPORT ---
EXAMINATION: ONE VIEW CHEST XR CLINICAL INDICATION: COUGH TECHNIQUE: Frontal chest projection is submitted. Examination is limited by patient positioning and t echnique. COMPARISON: 05/07/2023 FINDINGS: The lungs are well inflated and clear. The heart is normal in size. No displaced fractures identified . IMPRESSION: No acute intrathoracic abnormalities.
[2024-11-18 14:42] LABS: PT Prothrombin Time 11.3 SECONDS (10-13.0); PTT, Activated Partial Thromb 29.3 SECONDS (27.2-37.4); Protime INR 0.99
[2024-11-18 14:43] LABS: ALT/SGPT 55 U/L (16-61); AST/SGOT 25 U/L (15-37); Albumin 4.4 g/dL (3.4-5.0); Albumin/Globulin Ratio 1.3 (1.1-1.8); Alkaline Phosphatase 44 U/L (45-117); Anion Gap 13.4 mEq/L (5.0-15.0); BUN Blood Urea Nitrogen 13 mg/dL (7-18); Bicarbonate 23 mEq/L (21-32); Bilirubin Total 0.5 mg/dL (0.2-1.0); Globulin 3.4 g/dL (2.3-3.5); Glomerular Filtration Rate 101 ml/min (=/>90); Glucose Level 94 mg/dL (74-106); Potassium 3.4 mEq/L (3.5-5.1); Protein, Total 7.8 g/dL (6.4-8.2); Sodium Level 135 mEq/L (136-145); Troponin High Sensitivity 3.1 pg/mL (<58.9)
[2024-11-18 14:44] LABS: Bilirubin Direct < 0.2 mg/dL (0-0.2); Bilirubin Indirect, Calculated 0.3 mg/dL (0.2-0.8)
[2024-11-18 14:48] LABS: Barbiturates NEGATIVE (NEGATIVE); Benzodiazepines NEGATIVE (NEGATIVE); Cocaine NEGATIVE (NEGATIVE); METHAMPHETAM NEGATIVE (NEGATIVE); Methadone NEGATIVE (NEGATIVE); Opiates NEGATIVE (NEGATIVE); Phencyclidine NEGATIVE (NEGATIVE); THC Cannibis NEGATIVE (NEGATIVE)
[2024-11-18 15:03] LABS: Specific Gravity 1.021 (1.005-1.030); Sqamous Epithelial None Seen /HPF (None Seen); Urine Bacteria None Seen /HPF (<20); Urine Bilirubin NEGATIVE (Negative); Urine Blood Negative (Negative); Urine Clarity Clear (Clear); Urine Color Yellow (Yellow); Urine Culture Reflex Order NOT NEEDED; Urine Glucose NEGATIVE (Negative); Urine Ketones 2+ (Negative); Urine Microscopic Reflex YN ORDER UMIC; Urine Mucus Slight /HPF (None Seen); Urine Nitrite NEGATIVE (Negative); Urine Protein TRACE (Negative); Urine RBC <5 /HPF (None Seen); Urine Urobilinogen Normal (Normal); Urine WBC <5 /HPF (<5); Urine WBC Clump Rare /HPF (None Seen); Urine pH 5.5 (5.0-7.0)
--- NOTE | 2024-11-18 15:07 | ER ---
Nurse's Notes [facility] Name: King Pierce Age: 24 yrs Sex: Male : 2000 Arrival Date: 11/18/2024 Time: 13:33 Bed 10 Private MD: Diagnosis: Weakness;Syncope Near;Alcohol abuse;Alcohol use, unspecified;Hypokalemia;Dehydration Presentation: 11/18 13:44 Chief complaint: Patient states: Near syncopal episode prior to arrival. PT reports he ss began to feel dizzy 2 hours ago. Coronavirus screen: Client denies travel out of the [place] in the last 14 days. Ebola Screen: Patient denies exposure to infectious person. Patient denies travel to an Ebola-affected area in the 21 days before illness onset. Initial Sepsis Screen: Does the patient meet any 2 criteria? No. Patient's initial sepsis screen is negative. Does the patient have a suspected source of infection? No. Patient's initial sepsis screen is negative. Risk Assessment: Do you want to hurt yourself or someone else? Patient reports no desire to harm self or others. Onset of symptoms was November 18, 2024. 13:44 Method Of Arrival: Ambulatory ss 13:44 Acuity: JANNY 3 ss Historical: - Allergies: 13:47 No Known Allergies; ss - Home Meds: 13:47 None [Active]; ss - PMHx: 13:47 None; ss - PSHx: 13:47 None; ss - Immunization history:: Adult Immunizations up to date. - Infectious Disease History:: Denies. - Social history:: Smoking status: Patient reports use of chewing tobacco. Reported history of juuling and/or vaping. Patient uses alcohol, on a daily basis. "18 beers/ day". - Family history:: not pertinent. Screenin:02 Abuse screen: Denies threats or abuse. Denies injuries from another. Nutritional ss screening: No deficits noted. Assessment: 14:20 General: Appears uncomfortable, Behavior is cooperative, anxious, Denies fever, feeling ss ill, chills. Pain: Denies pain. Neuro: Level of Consciousness is awake, alert, obeys commands, Oriented to person, place, time, situation, Senior [employer] are equal bilaterally. Respiratory: Airway is patent Respiratory effort is even, unlabored, Respiratory pattern is regular, symmetrical. : No signs and/or symptoms were reported regarding the genitourinary system. EENT: Oral mucosa is moist. Derm: Skin is intact, is healthy with good turgor, Skin is dry, Skin is pink, warm \\T\\ dry. normal. Musculoskeletal: Circulation, motion, and sensation intact. Range of motion: intact in all extremities, Swelling absent. 17:02 Reassessment: Patient appears in no apparent distress at this time. Patient and/or ss family updated on plan of care and expected duration. Pain level reassessed. Patient is alert, oriented x 3, equal unlabored respirations, skin warm/dry/pink. Patient states feeling better. Patient states symptoms have improved. Vital Signs: 13:44 BP 175 / 76; Pulse 117; Resp 18; Temp 98.6(O); Pulse Ox 98% on R/A; Weight 92.99 kg; ss Height 5 ft. 6 in. ; Pain 0/10; 16:22 BP 141 / 82 Supine; Pulse 93; ss 16:22 BP 144 / 84 Sitting; Pulse 97; ss 16:22 BP 145 / 81 Standing; Pulse 97; ss 13:44 Body Mass Index 33.09 (92.99 kg, 167.64 cm) ss 13:44 Pain Scale: Adult ss ED Course: 13:37 Patient arrived in ED. me1 13:38 Salty Meadows MD is Attending Physician. [facility] 13:47 Triage completed. ss 13:47 Arm band placed on right wrist. ss 14:12 Chest Single View XRAY In Process Unspecified. EDMS 14:20 Inserted saline lock: 20 gauge in left antecubital area, using aseptic technique. Blood ss collected. Flushed with 10 mL NS. 16:28 Monica White, PETE is Primary Nurse. ss 17:02 No provider procedures requiring assistance completed. IV discontinued, intact, ss bleeding controlled, No redness/swelling at site. Pressure dressing applied. Administered Medications: 14:24 Drug: NS 0.9% IV 1000 ml IV at 1000 ml once; to be given as a bolus over 60 minutes ss Route: IV; Rate: 1000 ml; Site: left antecubital; 16:20 Follow up: IV Status: Completed infusion; IV Intake: 1000ml ss 14:24 Drug: Thiamine IV 100 mg IV at bolus once Route: IV; Rate: bolus; Site: left antecubital; 17:03 Follow up: IV Status: Completed infusion 16:28 Drug: Potassium PO Effervescent Tablet 50 mEq PO once; dissolve in 4 ounces of water or ss juice Route: PO; 17:03 Follow up: Response: Medication Administered at Departure Intake: 16:20 IV: 1000ml; Total: 1000ml. Outcome: 15:06 Discharge ordered by . hossein 17:02 Discharged to home ambulatory, 17:02 Condition: good 17:02 Discharge instructions given to patient, family, Instructed on discharge instructions, follow up and referral plans. Demonstrated understanding of instructions, follow-up care, 17:03 Patient left the ED. Signatures: Dispatcher [employer] EDMS Salty Meadows MD MD cha Blanchard, Shelby, RN RN Balbina Magana RN RN me1 Corrections: (The following items were deleted from the chart) 16:23 16:22 BP 144 / 84; Pulse 97bpm; [facility]
--- NOTE | 2024-11-18 15:07 | EDPHYS ---
Physician Documentation [facility] Name: King Pierce Age: 24 yrs Sex: Male : 2000 Arrival Date: 11/18/2024 Time: 13:33 Bed 10 Private MD: ED Physician Salty Meadows HPI: 11/18 14:21 This 24 yrs old Male presents to ER via Ambulatory with complaints of Near hossein Syncope, Dizziness, Weakness, Possible Dehydration. 14:21 The patient has experienced near-syncope, felt dizzy, felt faint. Onset: The hossein symptoms/episode began/occurred just prior to arrival, this morning. Duration: This was a single episode, that lasted 30 second(s). Context: the episode(s) was witnessed, by family, occurred at home. Associated injury: The patient did not suffer any apparent associated injury. Associated signs and symptoms: The patient has no apparent associated signs or symptoms. Current symptoms: Currently, the patient is not experiencing any symptoms. The patient has experienced similar episodes in the past, a few times. Historical: - Allergies: 13:47 No Known Allergies; ss - Home Meds: 13:47 None [Active]; ss - PMHx: 13:47 None; ss - PSHx: 13:47 None; ss - Immunization history:: Adult Immunizations up to date. - Infectious Disease History:: Denies. - Social history:: Smoking status: Patient reports use of chewing tobacco. Reported history of juuling and/or vaping. Patient uses alcohol, on a daily basis. "18 beers/ day". - Family history:: not pertinent. ROS: 14:21 Constitutional: Negative for fever, chills, and weight loss, Eyes: Negative for injury, hossein pain, redness, and discharge, ENT: Negative for injury, pain, and discharge, Neck: Negative for injury, pain, and swelling, Cardiovascular: Negative for chest pain, palpitations, and edema, Respiratory: Negative for shortness of breath, cough, wheezing, and pleuritic chest pain, Abdomen/GI: Negative for abdominal pain, nausea, vomiting, diarrhea, and constipation, Back: Negative for injury and pain, : Negative for injury, bleeding, discharge, and swelling, MS/Extremity: Negative for injury and deformity, Skin: Negative for injury, rash, and discoloration, Psych: Negative for depression, anxiety, suicide ideation, homicidal ideation, and hallucinations, Allergy/Immunology: Negative for hives, rash, and allergies, Endocrine: Negative for neck swelling, polydipsia, polyuria, polyphagia, and marked weight changes, Hematologic/Lymphatic: Negative for swollen nodes, abnormal bleeding, and unusual bruising, 14:21 Neuro: Positive for near syncope, weakness, Exam: 14:21 Constitutional: This is a well developed, well nourished patient who is awake, alert, hossein and in no acute distress. Head/Face: Normocephalic, atraumatic. Eyes: Pupils equal round and reactive to light, extra-ocular motions intact. Lids and lashes normal. Conjunctiva and sclera are non-icteric and not injected. Cornea within normal limits. Periorbital areas with no swelling, redness, or edema. ENT: Nares patent. No nasal discharge, no septal abnormalities noted. Tympanic membranes are normal and external auditory canals are clear. Oropharynx with no redness, swelling, or masses, exudates, or evidence of obstruction, uvula midline. Mucous membranes moist. Neck: Trachea midline, no thyromegaly or masses palpated, and no cervical lymphadenopathy. Supple, full range of motion without nuchal rigidity, or vertebral point tenderness. No Meningismus. Chest/axilla: Normal chest wall appearance and motion. Nontender with no deformity. No lesions are appreciated. Cardiovascular: Regular rate and rhythm with a normal S1 and S2. No gallops, murmurs, or rubs. Normal PMI, no JVD. No pulse deficits. Respiratory: Lungs have equal breath sounds bilaterally, clear to auscultation and percussion. No rales, rhonchi or wheezes noted. No increased work of breathing, no retractions or nasal flaring. Abdomen/GI: Soft, non-tender, with normal bowel sounds. No distension or tympany. No guarding or rebound. No evidence of tenderness throughout. Back: No spinal tenderness. No costovertebral tenderness. Full range of motion. Skin: Warm, dry with normal turgor. Normal color with no rashes, no lesions, and no evidence of cellulitis. MS/ Extremity: Pulses equal, no cyanosis. Neurovascular intact. Full, normal range of motion., bilateral aka Neuro: Awake and alert, GCS 15, oriented to person, place, time, and situation. Cranial nerves II-XII grossly intact. Motor strength 5/5 in all extremities. Sensory grossly intact. Cerebellar exam normal. Normal gait. Psych: Awake, alert, with orientation to person, place and time. Behavior, mood, and affect are within normal limits. 14:21 ECG was reviewed by the Attending Physician. 14:21 Musculoskeletal/extremity: DVT Exam: No signs of deep vein thrombosis. no pain, no swelling, no tenderness, negative Homans' sign noted on exam, no appreciated bluish discoloration, no erythema, no increased warmth, Vital Signs: 13:44 BP 175 / 76; Pulse 117; Resp 18; Temp 98.6(O); Pulse Ox 98% on R/A; Weight 92.99 kg; ss Height 5 ft. 6 in. ; Pain 0/10; 16:22 BP 141 / 82 Supine; Pulse 93; ss 16:22 BP 144 / 84 Sitting; Pulse 97; ss 16:22 BP 145 / 81 Standing; Pulse 97; ss 13:44 Body Mass Index 33.09 (92.99 kg, 167.64 cm) ss 13:44 Pain Scale: Adult ss MDM: 13:38 Medical Screening Exam initiated hossein 14:24 Differential Diagnosis: aortic aneurysm, cardiac arrhythmia, cerebrovascular accident, hossein emotional response, GI bleed, idiopathic syncope, pseudo seizure, seizure, vasovagal episode. Data reviewed: vital signs, nurses notes, lab test result(s), EKG, radiologic studies, plain films. Consideration of Admission/Observation Escalation of care including admission/observation considered. I considered the following discharge prescriptions or medication management in the emergency department Medications were administered in the Emergency Department. See MAR. Independent interpretation of the following test(s) in the Emergency Department EKG: See my EKG interpretation above. Historians other than the Patient: pt well informed. Care significantly affected by the following chronic conditions: etoh abuse. Counseling: I had a detailed discussion with the patient and/or guardian regarding the historical points, exam findings, and any diagnostic results supporting the discharge/admit diagnosis, the presence of at least one elevated blood pressure reading (>120/80) during this emergency department visit, lab results, radiology results, the need for outpatient follow up, for definitive care, a family practitioner. 11/18 13:50 Order name: Acetaminophen; Complete Time: 15:04 hossein 11/18 13:50 Order name: Basic Metabolic Panel; Complete Time: 15:04 11/18 13:50 Order name: CBC with Diff; Complete Time: 15:11/18 13:50 Order name: ETOH Level; Complete Time: 15:11/18 13:50 Order name: Hepatic Function; Complete Time: 15:04 11/18 13:50 Order name: PT-INR; Complete Time: 15:11/18 13:50 Order name: Ptt, Activated; Complete Time: 15:11/18 13:50 Order name: Salicylate; Complete Time: 15:11/18 13:50 Order name: Urinalysis w/ reflexes; Complete Time: 15:11/18 13:50 Order name: Urine Drug Screen; Complete Time: 15:11/18 13:50 Order name: Troponin High Sensitivity; Complete Time: 15:04 11/18 13:50 Order name: Chest Single View XRAY; Complete Time: 15:11/18 13:50 Order name: EKG - Nurse/Tech; Complete Time: 14:15 11/18 13:50 Order name: IV Saline Lock; Complete Time: 14:15 11/18 13:50 Order name: Labs collected and sent; Complete Time: 14:15 11/18 15:04 Order name: PO challenge: gatorade; Complete Time: 16:21 11/18 15:06 Order name: Orthostatics: if neg dc; Complete Time: 16:20 [facility] EC:21 Rate is 96 beats/min. Rhythm is regular. QRS [place] is Normal. RI interval is normal. QRS hossein interval is normal. QT interval is normal. No Q waves. T waves are Normal. No ST changes noted. Clinical impression: NSR w/ Non-specific ST/T Changes and No evidence of ischemia. Interpreted by me. Reviewed by me. Administered Medications: 14:24 Drug: NS 0.9% IV 1000 ml IV at 1000 ml once; to be given as a bolus over 60 minutes ss Route: IV; Rate: 1000 ml; Site: left antecubital; 16:20 Follow up: IV Status: Completed infusion; IV Intake: 1000ml ss 14:24 Drug: Thiamine IV 100 mg IV at bolus once Route: IV; Rate: bolus; Site: left ss antecubital; 17:03 Follow up: IV Status: Completed infusion 16:28 Drug: Potassium PO Effervescent Tablet 50 mEq PO once; dissolve in 4 ounces of water or ss juice Route: PO; 17:03 Follow up: Response: Medication Administered at Departure ss Disposition Summary: 11/18/24 15:06 Discharge Ordered Notes: Location: Home hossein Problem: new hossein Symptoms: have improved hossein Condition: Stable hossein Diagnosis - Weakness hossein - Syncope Near hossein - Alcohol abuse hossein - Alcohol use, unspecified hossein - Hypokalemia hossein - Dehydration hossein Followup: hossein - With: Private Physician - When: 2 - 3 days - Reason: Recheck today's complaints, Continuance of care, Re-evaluation by your physician Discharge Instructions: - Discharge Summary Sheet hossein - Alcohol Use Disorder hossein - Dehydration, Adult hossein - Potassium Content of Foods hossein - Near-Syncope hossein - Weakness hossein - Fatigue hossein - Alcohol Intoxication, [id number] hossein - Near-Syncope, Arnu-ks-Assu hossein - Alcohol Abuse and Nutrition hossein - Hypokalemia hossein - Deconditioning hossein Forms: - Medication Reconciliation Form hossein - Antibiotic Education hossein - Prescription Opioid Use hossein - Patient Portal Instructions hossein - Leadership Thank You Letter [facility] Signatures: Dispatcher [employer] EDMS Salty Meadows MD MD cha Blanchard, Shelby RN RN ss Corrections: (The following items were deleted from the chart) 13:51 13:51 Chest Single View+RAD.[email or web address].[email or web address] ordered. EDNC EDMS 16:23 13:50 Suicide Screening ([place]) ordered. [facility]
[2024-11-18] MEDS ORDERED: POTASSIUM 25 MEQ EFFERV TAB ONE (16:24)
--- NOTE | 2024-11-19 12:09 | EKG ---
Test Date: 2024-11-18 Test Time: 14:10:33 Tar Roofer: YVROSE MEASUREMENT RESULTS: Intervals: Rate: 96 CT: 154 QRSD: 92 QT: 334 QTc: 421 Walker: P: 48 CT: 154 QRS: 0 T: 29 INTERPRETIVE STATEMENTS: Normal sinus rhythm with sinus arrhythmia Normal ECG Compared to ECG 05/07/2023 15:00:40 T-wave abnormality no longer present Electronically Signed On 11-19-24 12:07:18 CDT by Byron Dalton
[2024-11-20 06:37] VITALS: TEMP 98.6; O2SAT 98
[2024-11-20 06:39] VITALS: BP 145/81
== END 2024-11-18 17:03 | disposition home or self-care (01) ==
LOC: ER 13:33
DX: R55 Syncope and collapse (principal); R53.1 Weakness; F10.10 Alcohol abuse, uncomplicated; E87.6 Hypokalemia; E86.0 Dehydration
CPT/HCPCS: 36415; 71045; 80048; 80076; 80143; 80179; 80307; 81001; 82077; 84484; 85025; 85610; 85730; 93005; 96365; 96366; 99284; J3411; J7030